=== PATIENT | male | born 1960 | race Caucasian/White ===

== ENCOUNTER → 2021-06-21 | Outpatient (CLI) | payer BC ==
[~2021-06-21] MED LIST: Aspirin EC81 MG PO; Bystolic5 MG PO; LORA2 PO; VITAMIN D31000 UNIT PO
== END | disposition home or self-care (01) ==
LOC: LAB 11:01 → LAB SHORT 11:01
DX: L91.8 Other hypertrophic disorders of the skin (principal)
CPT/HCPCS: 88304